=== PATIENT | female | born 1955 | race Two or more races ===

== ENCOUNTER 2023-11-12 05:12 | Day surgery (SDC) | payer OTHER ==
[2023-11-01 09:11] LABS: PH,URINE 5.5 (5.0-8.0); URINE APPEARANCE Clear; URINE BILIRRUBIN Negative (NEGATIVE); URINE BLOOD Trace; URINE COLOR Yellow; URINE GLUCOSE Negative (NEGATIVE); URINE LEUKOCYTE Trace; URINE NITRATE Negative; URINE PROTEIN Negative (NEGATIVE); URINE UROBILINOGEN 0.2 E.U./dl
[2023-11-01 09:14] LABS: URINE BACTERIA 15.1 uL (0.0-1933); URINE EPITHELIAL CELLS 5.8 uL (0.0-38.8); URINE RBC 7.7 uL (0.0-20.8); URINE WBC 12.4 uL (0.0-23.2)
[2023-11-01 09:16] LABS: HEMATOCRIT 40.6 % (36.0-45.00); MEAN CORPUSCULAR HEMOGLOBIN 29.7 pg (27.00-32.0); MEAN CORPUSCULAR HGB CONC 34.6 g/dl (32.0-36.0); PLATELET COUNT 274 K/uL (150-450); RED BLOOD COUNT 4.72 M/uL (4.00-6.00); RED CELL DISTRIBUTION WIDTH 13.4 % (11.5-14.5)
[2023-11-01 09:44] LABS: BILIRUBIN TOTAL 0.34 mg/dL (0.3-1.2); CALCIUM 9.5 mg/dL (8.5-10.1); CREATININE SERUM 0.72 mg/dL (0.55-1.02); GFR 80.31; GLOBULINA 3.1 G/DL (2.4-3.5); POTASSIUM 5.16 mEq/L (3.5-5.1); TOTAL PROTEIN 7.1 gm/dL (6.4-8.2)
[2023-11-01 09:54] LABS: INR 0.94; PROTHROMBIN TIME 9.9 SECONDS (9.0-11.5)
[2023-11-12] MEDS ORDERED: BUPIVACAINE HCL/PF 0.5% 30ML ML ONE (06:54)
[2023-11-12] MEDS ORDERED: CLINDAMYCIN PHOSPHATE 150 MG/ML (900mg) ONE (07:04)
[2023-11-12] MEDS ORDERED: CLINDAMYCIN PHOSPHATE 150 MG/ML (900mg) IV ONE (08:30)
== END 2023-11-12 12:25 | disposition home or self-care (01) ==
LOC: CIR.AMB 05:12
PROVIDERS: ATTEND Orthopaedic Surgery Hand Surgery
DX: M19.042 Primary osteoarthritis, left hand (principal); Z88.8 Allergy status to other drugs, medicaments and biological substances